=== PATIENT | male | born 1965 | race Caucasian/White ===

== ENCOUNTER 2021-10-30 06:14 | Inpatient (IN) ==
[2021-10-30] MEDS ORDERED: CeFAZolin Syr 3,000MG/30 ML 3,000 MG/30 ML SYRINGE IVPB ONE (06:31)
[2021-10-30] MEDS ORDERED: Ringers Solution, Lactated 1,000 ML IVC SCH ×2 (06:45→17:09)
[2021-10-30] MEDS ORDERED: Lidocaine -MPF 2% 5 ML VIAL ONE ×2 (07:48→08:53)
[2021-10-30] MEDS ORDERED: Lidocaine HCL 4 ML Topical Solution (Laryng-O-Jet Kit Sterile Pak) TP ONE (07:48)
[2021-10-30] MEDS ORDERED: Ondansetron 4 MG/2 ML VIAL ONE ×2 (07:48→13:30)
[2021-10-30] MEDS ORDERED: *HR* Rocuronium Bromide 50 MG/5 ML VIAL ONE ×4 (07:48→12:51)
[2021-10-30] MEDS ORDERED: *HR* Midazolam HCl 2 MG/2 ML VIAL ONE (07:48)
[2021-10-30] MEDS ORDERED: *HR* FentaNYL (PF) 100 MCG/2 ML VIAL ONE (07:48)
[2021-10-30] MEDS ORDERED: *HR* Succinylcholine 200 MG/10 ML VIAL IVP ONE (07:48)
[2021-10-30] MEDS ORDERED: Promethazine 6.25 MG in Water for inj. (sterile) 20 ML IVPB PRN (08:06)
[2021-10-30] MEDS ORDERED: *HR* OxyCODONE Immed Rel 5 MG TABLET PO PRN (08:06)
[2021-10-30] MEDS ORDERED: Ondansetron 4 MG/2 ML VIAL IVP PRN ×2 (08:06→17:09)
[2021-10-30] MEDS ORDERED: Ketamine HCL *QUVA* 50mg (1mL) SYRINGE ONE (08:51)
[2021-10-30] MEDS ORDERED: *HR* HYDROMORPHONE 2 MG/ML VIAL ONE (09:37)
[2021-10-30] MEDS ORDERED: *HR* Labetalol 20 MG/4 ML SYRINGE IVP ONE (09:42)
[2021-10-30] MEDS ORDERED: Acetaminophen IV 1,000 MG/100 ML BAG IVPB ONE (10:02)
[2021-10-30] MEDS ORDERED: Dexmedetomidine HCl 400 MCG/100 ML MLS IVC ONE (12:03)
[2021-10-30] MEDS: *HR* HYDROmorphone PF 0.5 MG/0.5 ML SYRINGE IVP PRN ×4 (14:40→15:30)
[2021-10-30] MEDS ORDERED: Albuterol 2.5 MG/3 ML NEBULIZER IH ONE (15:46)
[2021-10-30] MEDS ORDERED: Albuterol 2.5 MG/3 ML NEBULIZER ONE (15:48)
[2021-10-30] MEDS ORDERED: Naloxone 0.4 MG/ML INJ IVP PRN (17:09)
[2021-10-30] MEDS: Piperacillin/Tazobactam 3.375 GM in 0.9 % Sodium Chloride Mini Bag 100 ML IVPB SCH (17:55)
[2021-10-30] MEDS: *HR* HYDROcodone/Acet 5/325 mg TABLET PO PRN (18:11)
[2021-10-31] MEDS: Piperacillin/Tazobactam 3.375 GM in 0.9 % Sodium Chloride Mini Bag 100 ML IVPB SCH ×4 (00:10→23:35)
[2021-10-31] MEDS: *HR* HYDROcodone/Acet 5/325 mg TABLET PO PRN ×2 (00:10→23:49)
[2021-10-31 03:08] LABS: Basophils % 0.2 %; Eosinophils % 0.1 %; Hematocrit 43.6 % (37.5-50.1); Immature Granulocytes % 0.4 % (0-4); Lymphocytes # 1.8 K/mcL (0.6-4.6); Lymphocytes % 14.8 %; Mean Corpuscular HGB Conc 32.1 g/dL (31.6-35.5); Mean Corpuscular Hemoglobin 29.5 pg (28.0-33.3); Mean Platelet Volume 9.7 fL (9.4-12.4); Monocytes # 0.9 K/mcL (0.0-1.3); Monocytes % 7.5 %; Neutrophils # 9.1 K/mcL (1.6-8.9); Platelet Count 247 K/mcL (140-400); Red Blood Count 4.74 M/mcL (4.19-5.50); Red Cell Distribution Width 13.7 % (11.5-14.5)
[2021-10-31 03:11] LABS: White Blood Count 11.8 K/mcL (4.3-11.1)
[2021-10-31 03:21] LABS: Alanine Aminotransferase 51 Units/L (7-52); Albumin 4.2 g/dL (3.5-5.7); Albumin/Globulin Ratio 1.6 (1.1-2.2); Alkaline Phosphatase 78 Units/L (34-104); Aspartate Amino Transferase 76 Units/L (13-39); BUN/Creatinine Ratio 18 (6-26); Bilirubin,Direct 0.1 mg/dL (0.0-0.2); Bilirubin,Indirect 0.6 mg/dL (0.0-1.0); Bilirubin,Total 0.7 mg/dL (0.3-1.0); Blood Urea Nitrogen 19 mg/dL (6-20); Calcium 8.8 mg/dL (8.6-10.3); Carbon Dioxide 23 mEq/L (23-29); Chloride 103 mEq/L (98-107); Globulin 2.6 g/dL (2.4-3.5); Glucose 120 mg/dL (70-105); Osmolality,Calculated 287 (280-300); Potassium 4.4 mEq/L (3.5-5.1); Sodium 137 mEq/L (136-145); Total Protein 6.8 g/dL (6.4-8.9); eGFR For African Americans > 60 (> 60); eGFR For Non-African Americans > 60 (> 60)
[2021-10-31] MEDS: *HR* Enoxaparin 40 MG/0.4 ML SYRINGE SQ SCH (05:20)
[2021-10-31] MEDS: lisinopriL 20 MG TABLET PO SCH (08:24)
[2021-10-31] MEDS: amLODIPine 5 MG TABLET PO SCH (08:24)
[2021-10-31] MEDS: FLUoxetine 20 MG CAPSULE PO SCH (08:24)
[2021-10-31] MEDS: Ipratropium/Albuterol Neb 3 ML IH ONE ×2 (11:08→15:33)
[2021-10-31] MEDS ORDERED: *HR* OxyCODONE/APAP 10/325 TABLET PO PRN (12:04)
[2021-10-31] MEDS ORDERED: Baclofen 10 MG TABLET PO PRN (12:04)
[2021-10-31] MEDS ORDERED: Ipratropium/Albuterol Neb 3 ML ONE (15:25)
[2021-10-31] MEDS: Budesonide/Formoterol 160/4.5 1 PUFF INH IH SCH (22:31)
[2021-11-01] MEDS: *HR* HYDROcodone/Acet 5/325 mg TABLET PO PRN ×2 (05:51→13:17)
[2021-11-01] MEDS: *HR* Enoxaparin 40 MG/0.4 ML SYRINGE SQ SCH (05:51)
[2021-11-01] MEDS: Budesonide/Formoterol 160/4.5 1 PUFF INH IH SCH (07:55)
[2021-11-01] MEDS: Piperacillin/Tazobactam 3.375 GM in 0.9 % Sodium Chloride Mini Bag 100 ML IVPB SCH (08:23)
[2021-11-01] MEDS: amLODIPine 5 MG TABLET PO SCH (08:24)
[2021-11-01] MEDS: lisinopriL 20 MG TABLET PO SCH (08:24)
[2021-11-01] MEDS: FLUoxetine 20 MG CAPSULE PO SCH (08:24)
[2021-11-01] MEDS ORDERED: polyethylene glycoL 3350 17 GM POWD.PACK PO SCH (09:00)
[2021-11-01] MEDS ORDERED: Loratadine 10 MG TABLET PO SCH (09:00)
[2021-11-01 10:15] VITALS: BP 144/76; PULSE 95; TEMP 97.8; O2SAT 95
== END 2021-11-01 13:23 | disposition home or self-care (01) | DRG 418 ==
LOC: SAMDAY 06:14 → 3ANU 16:59
PROVIDERS: ADMIT Surgery; ATTEND Surgery